=== PATIENT | male | born 1980 | race Caucasian/White ===

== ENCOUNTER 2018-01-16 07:44 | Emergency (ER) | payer OTHER ==
[2018-01-16] MEDS ORDERED: SODIUM CHLORIDE 0.9% 1,000 ML IV STA (08:09)
[2018-01-16] MEDS ORDERED: KETOROLAC 30 MG/ML 1 ML VIAL IVP STA (08:14)
[2018-01-16] MEDS ORDERED: ONDANSETRON 4 MG/2 ML VIAL IVP STA (08:14)
[2018-01-16 08:23] LABS: Basophils # (A) 0.1 k/uL (0-0.2); Basophils % (A) 1 %; Eosinophils # (A) 0.5 k/uL (0-0.7); Eosinophils % (A) 5 %; HGB 15.8 gm/dL (13.0-17.5); Lymphocytes # (A) 3.8 k/uL (1.0-4.8); Lymphocytes % (A) 40 %; MCH 30.3 pg (25.0-35.0); MCHC 33.5 g/dL (31.0-37.0); MCV 90.5 fL (80.0-100.0); Mean Platelet Volume 7.5; Monocytes # (A) 0.5 k/uL (0-1.0); Monocytes % (A) 5 %; Neutrophils # (A) 4.4 k/uL (1.3-7.7); Neutrophils % (A) 47 %; Platelet Count 304 k/uL (150-450); WBC 9.5 k/uL (3.8-10.6)
[2018-01-16 08:27] LABS: Appearance,Urine Cloudy (Clear); Bacteria,Urine Rare /hpf; Bilirubin,Urine Negative (Negative); Blood,Urine Moderate (Negative); Color,Urine Yellow; Glucose,Urine (UA) Negative (Negative); Ketones,Urine Negative (Negative); Leukocyte Esterase,Urine Negative (Negative); Mucus,Urine Few /hpf; Nitrite,Urine Negative (Negative); Protein,Urine Trace (Negative); RBC,Urine 61 /hpf (0-5); Specific Gravity,Urine 1.022 (1.001-1.035); WBC,Urine 6 /hpf (0-5)
[2018-01-16 08:31] LABS: ALT 36 U/L (21-72); AST 28 U/L (17-59); Albumin 4.1 g/dL (3.5-5.0); Alkaline Phosphatase 85 U/L (38-126); Amylase 87 U/L (30-110); Anion Gap 11 mmol/L; Blood Urea Nitrogen 11 mg/dL (9-20); Calcium 9.8 mg/dL (8.4-10.2); Carbon Dioxide 20 mmol/L (22-30); Chloride 113 mmol/L (98-107); Glucose 118 mg/dL (74-99); Lipase 1192 U/L (23-300); Potassium 4.3 mmol/L (3.5-5.1); Sodium 144 mmol/L (137-145); Total Bilirubin 0.3 mg/dL (0.2-1.3); Total Protein 6.8 g/dL (6.3-8.2)
--- NOTE | 2018-01-16 08:33 | ED ---
Abdominal Pain HPI - General Chief Complaint: Abdominal Pain Stated Complaint: abd pain Time Seen by Provider: 01/16/18 08:09 Source: patient, RN notes reviewed Mode of arrival: ambulatory Limitations: no limitations - History of Present Illness Initial Comments: This a 37-year-old male presents emergency Department chief complaint of right- sided abdominal pain. Patient states that he woke up with the pain and states that nothing seems to make it feel better or worse. Patient states he feels nauseated no diarrhea no constipation. He states hard to urinate states he feels that he has to go. Patient had no fever no chills denies any chest pain or shortness of breath. He's had no prior abdominal surgeries or history kidney stones. - Related Data Home Medications Medication Instructions Recorded Confirmed No Known Home Medications 01/16/18 01/16/18 Allergies Allergy/AdvReac Type Severity Reaction Status Date / Time No Known Allergies Allergy Verified 01/16/18 07:48 Review of Systems ROS Statement: Those systems with pertinent positive or pertinent negative responses have been documented in the HPI. ROS Other: All systems not noted in ROS Statement are negative. Past Medical History Past Medical History: No Reported History History of Any Multi-Drug Resistant Organisms: None Reported Past Surgical History: No Surgical Hx Reported Past Psychological History: No Psychological Hx Reported Smoking Status: Current every day smoker Past Alcohol Use History: None Reported Past Drug Use History: Marijuana General Exam Limitations: no limitations General appearance: alert, in no apparent distress Head exam: Present: atraumatic, normocephalic, normal inspection Eye exam: Present: normal appearance, PERRL, EOMI. Absent: scleral icterus, conjunctival injection, periorbital swelling ENT exam: Present: normal exam, normal oropharynx, mucous membranes moist Neck exam: Present: normal inspection. Absent: tenderness, meningismus, lymphadenopathy Respiratory exam: Present: normal lung sounds bilaterally. Absent: respiratory distress, wheezes, rales, rhonchi, stridor Cardiovascular Exam: Present: regular rate, normal rhythm, normal heart sounds. Absent: systolic murmur, diastolic murmur, rubs, gallop, clicks GI/Abdominal exam: Present: soft, tenderness (Mild midabdominal tenderness, minimal change in right lower quadrant tenderness), normal bowel sounds. Absent: distended, guarding, rebound, rigid Back exam: Present: CVA tenderness (R). Absent: CVA tenderness (L) Skin exam: Present: warm, dry, intact, normal color. Absent: rash Course Vital Signs 01/16/18 07:46 Temperature 97.5 F L Pulse Rate 58 L Respiratory 20 Rate Blood Pressure 145/80 O2 Sat by Pulse 100 Oximetry Medical Decision Making - Medical Decision Making 37-year-old male presents emergency from for right-sided abdominal pain. Patient had clinical symptoms of a kidney stone. He did have hematuria noted on the urine bili also had an elevated lipase. CT was obtained with contrast secondary to elevated lipase. Patient had no acute findings on CT. Patient clinically feels better at this time he has no pain and was only given Toradol. Patient most likely passed stone or it was just not seen on CT secondary to contrast. Patient was plan to be admitted to emergency from for further evaluation of the elevated lipase as he states he has not drank in over 1 year. Patient states that he has no pain and does not want to be admitted at this time we did discuss return parameters. - Lab Data Result diagrams: 01/16/18 08:00 01/16/18 08:00 Lab Results 01/16/18 01/16/18 01/16/18 Range/Units 08:00 08:00 08:00 WBC 9.5 (3.8-10.6) k/uL RBC 5.20 (4.30-5.90) m/uL Hgb 15.8 (13.0-17.5) gm/dL Hct 47.0 (39.0-53.0) % MCV 90.5 (80.0-100.0) fL MCH 30.3 (25.0-35.0) pg MCHC 33.5 (31.0-37.0) g/dL RDW 13.0 (11.5-15.5) % Plt Count 304 (150-450) k/uL Neutrophils % 47 % Lymphocytes % 40 % Monocytes % 5 % Eosinophils % 5 % Basophils % 1 % Neutrophils # 4.4 (1.3-7.7) k/uL Lymphocytes # 3.8 (1.0-4.8) k/uL Monocytes # 0.5 (0-1.0) k/uL Eosinophils # 0.5 (0-0.7) k/uL Basophils # 0.1 (0-0.2) k/uL Sodium 144 (137-145) mmol/L Potassium 4.3 (3.5-5.1) mmol/L Chloride 113 H (98-107) mmol/L Carbon Dioxide 20 L (22-30) mmol/L Anion Gap 11 mmol/L BUN 11 (9-20) mg/dL Creatinine 1.03 (0.66-1.25) mg/dL Est GFR (CKD-EPI)AfAm >90 (>60 ml/min/1.73 sqM) Est GFR (CKD-EPI)NonAf >90 (>60 ml/min/1.73 sqM) Glucose 118 H (74-99) mg/dL Calcium 9.8 (8.4-10.2) mg/dL Total Bilirubin 0.3 (0.2-1.3) mg/dL AST 28 (17-59) U/L ALT 36 (21-72) U/L Alkaline Phosphatase 85 (38-126) U/L Total Protein 6.8 (6.3-8.2) g/dL Albumin 4.1 (3.5-5.0) g/dL Amylase 87 (30-110) U/L Lipase 1192 H (23-300) U/L Urine Color Yellow Urine Appearance Cloudy (Clear) Urine pH 5.0 (5.0-8.0) Ur Specific [place] 1.022 (1.001-1.035) Urine Protein Trace H (Negative) Urine Glucose (UA) Negative (Negative) Urine Ketones Negative (Negative) Urine Blood Moderate H (Negative) Urine Nitrite Negative (Negative) Urine Bilirubin Negative (Negative) Urine Urobilinogen 2.0 (<2.0) mg/dL Ur Leukocyte Esterase Negative (Negative) Urine RBC 61 H (0-5) /hpf Urine WBC 6 H (0-5) /hpf Urine Bacteria Rare H (None) /hpf Urine Mucus Few H (None) /hpf Disposition Clinical Impression: Acute pancreatitis, Hematuria, Flank pain Disposition: HOME SELF-CARE Condition: Stable Instructions: Pancreatitis (ED) Additional Instructions: Please return to the Emergency Department if symptoms worsen or any other concerns. Is patient prescribed a controlled substance at d/c from ED?: No Referrals: None,Stated [Primary Care Provider] - 1-2 days
--- NOTE | 2018-01-16 09:22 | CT ---
EXAMINATION TYPE: CT abdomen pelvis w con DATE OF EXAM: 01/16/2018 COMPARISON: None HISTORY: right quadrant pain CT DLP: 1423.70 mGycm, Automated Exposure Control for Dose Reduction was Utilized. CONTRAST: CT scan of the abdomen and pelvis is performed without oral and with IV Contrast, patient injected wi th 100 mL of Isovue 300. FINDINGS: LUNG BASES: Dependent atelectasis in both bases is present. LIVER/GB: No CT dense intraluminal gallstones or surrounding inflammatory change is identified. PANCREAS: No significant abnormality is seen. SPLEEN: No significant abnormality is seen. ADRENALS: No significant abnormality is seen. KIDNEYS: No significant abnormality is seen. BOWEL: Evaluation bowel is slightly suboptimal study due to lack of enteric contrast. There is mild w all thickening involving the left and sigmoid colon through rectum. Finding could be product of poor distention but a mild diffuse colitis cannot be excluded. No suspicious small or large bowel dilatati on is identified. PROSTATE/SEMINAL VESICLES: No gross abnormality seen. LYMPH NODES: No greater than 1cm abdominal or pelvic lymph nodes are appreciated. OSSEOUS STRUCTURES: Partially sacralized right L5 segment. OTHER: Tiny fat-containing umbilical hernia. IMPRESSION: No significant acute finding is seen to account for patient's clinical symptoms of right upper quadrant pain. Cannot exclude a mild distal colitis, correlate clinically.
[2018-01-16] MEDS ORDERED: ACET/COD 300 MG/30 MG STARTER PACK 6 TAB BTL PO STA (10:57)
[2018-01-16 11:26] VITALS: BP 113/51; PULSE 62; RESP 18; TEMP 97.2
== END 2018-01-16 11:20 | disposition home or self-care (01) ==
LOC: EC 07:44
DX: K85.90 Acute pancreatitis without necrosis or infection, unspecified (principal); R31.9 Hematuria, unspecified; F17.200 Nicotine dependence, unspecified, uncomplicated
CPT/HCPCS: 36415; 80053; 82150; 83690; 85025; 81001; 74177; 99284; 96374; 96375; 96361; J2405; J1885; Q9967

== ENCOUNTER 2018-01-17 06:33 | Inpatient (IN) | payer OTHER ==
[2018-01-17 07:16] LABS: Basophils # (A) 0.1 k/uL (0-0.2); Basophils % (A) 1 %; Eosinophils # (A) 0.5 k/uL (0-0.7); Eosinophils % (A) 4 %; HGB 14.6 gm/dL (13.0-17.5); Lymphocytes # (A) 4.5 k/uL (1.0-4.8); Lymphocytes % (A) 44 %; MCH 30.5 pg (25.0-35.0); MCHC 33.9 g/dL (31.0-37.0); MCV 89.9 fL (80.0-100.0); Mean Platelet Volume 7.1; Monocytes # (A) 0.6 k/uL (0-1.0); Monocytes % (A) 6 %; Neutrophils # (A) 4.4 k/uL (1.3-7.7); Neutrophils % (A) 43 %; Platelet Count 286 k/uL (150-450); RBC 4.78 m/uL (4.30-5.90); WBC 10.3 k/uL (3.8-10.6)
[2018-01-17 07:24] LABS: ALT 36 U/L (21-72); AST 27 U/L (17-59); Albumin 3.7 g/dL (3.5-5.0); Alkaline Phosphatase 76 U/L (38-126); Amylase 58 U/L (30-110); Anion Gap 8 mmol/L; Blood Urea Nitrogen 11 mg/dL (9-20); Calcium 9.5 mg/dL (8.4-10.2); Carbon Dioxide 21 mmol/L (22-30); Chloride 111 mmol/L (98-107); Glucose 102 mg/dL (74-99); Lipase 435 U/L (23-300); Sodium 140 mmol/L (137-145); Total Bilirubin 0.3 mg/dL (0.2-1.3); Total Protein 6.3 g/dL (6.3-8.2)
[2018-01-17] MEDS ORDERED: HYDROmorphone 1 MG/ML 1 ML SYRINGE IVP STA ×3 (07:33→09:41)
[2018-01-17] MEDS ORDERED: SODIUM CHLORIDE 0.9% 1,000 ML IV STA (07:33)
[2018-01-17] MEDS ORDERED: ONDANSETRON 4 MG/2 ML VIAL IVP STA ×2 (07:33→07:37)
--- NOTE | 2018-01-17 07:38 | XR ---
EXAMINATION TYPE: XR KUB , 3 VIEWS DATE OF EXAM ORDERED: 01/17/2018. HISTORY: Pain. COMPARISON: Previous study dated 05/07/[address] scan of the abdomen and pelvis dated 03/2018. FINDINGS: The lung bases are clear. Within the abdomen, the abdominal gas pattern is within normal limits. There is no evidence of obstru ction or free air. No unusual calcifications are seen. The right femoral head is nonspherical. IMPRESSION: 1. NO ACUTE ABDOMINAL ABNORMALITY. 2. PLEASE CORRELATE CLINICALLY FOR RIGHT-SIDED FEMOROACETABULAR IMPINGEMENT SYNDROME.
--- NOTE | 2018-01-17 07:42 | ED ---
General Adult HPI - General Chief complaint: Abdominal Pain Stated complaint: Abdominal Pain Time Seen by Provider: 01/17/18 07:00 Source: patient, RN notes reviewed Mode of arrival: ambulatory Limitations: no limitations - History of Present Illness Initial comments: This is a 37-year-old male who presents emergency Department with right upper and epigastric abdominal pain as well as right flank pain. Patient states the pain started yesterday morning 7:00. Patient states he was in the emergency department yesterday had a CAT scan and was discharged home. Patient states they wanted to keep him but he refused to stay. Patient states the pain is since gotten worse so decided come back to the emergency department. Patient states he's had nausea and has been vomiting ever since. Patient denies any diarrhea. Patient denies any fever or chills. Patient denies any chest pain difficulty breathing or shortness of breath. Patient states she's been unable to keep any fluids down or food down. - Related Data Home Medications Medication Instructions Recorded Confirmed No Known Home Medications 01/16/18 01/16/18 Allergies Allergy/AdvReac Type Severity Reaction Status Date / Time No Known Allergies Allergy Verified 01/17/18 06:42 Review of Systems ROS Statement: Those systems with pertinent positive or pertinent negative responses have been documented in the HPI. ROS Other: All systems not noted in ROS Statement are negative. Past Medical History Past Medical History: No Reported History Additional Past Medical History / Comment(s): pancreatitis. History of Any Multi-Drug Resistant Organisms: None Reported Past Surgical History: No Surgical Hx Reported Past Psychological History: No Psychological Hx Reported Smoking Status: Current every day smoker Past Alcohol Use History: None Reported Past Drug Use History: Marijuana General Exam - General Exam Comments Initial Comments: GENERAL: Patient is well-developed and well-nourished. Patient is nontoxic and well- hydrated and is in moderate distress. ENT: Neck is soft and supple. No significant lymphadenopathy is noted. Oropharynx is clear. Moist mucous membranes. Neck has full range of motion without eliciting any pain. EYES: The sclera were anicteric and conjunctiva were pink and moist. Extraocular movements were intact and pupils were equal round and reactive to light. Eyelids were unremarkable. PULMONARY: Unlabored respirations. Good breath sounds bilaterally. No audible rales rhonchi or wheezing was noted. CARDIOVASCULAR: There is a regular rate and rhythm without any murmurs gallops or rubs. ABDOMEN: Patient has right-sided abdominal pain in the right flank and right upper quadrant and epigastric region. SKIN: Skin is clear with no lesions or rashes and otherwise unremarkable. NEUROLOGIC: Patient is alert and oriented x3. Cranial nerves II through XII are grossly intact. Motor and sensory are also intact. Normal speech, volume and content. Symmetrical smile. MUSCULOSKELETAL: Normal extremities with adequate strength and full range of motion. LYMPHATICS: No significant lymphadenopathy is noted PSYCHIATRIC: Normal psychiatric evaluation. Normal interpersonal interactions appears functionally intact in deals appropriately with others. No signs of depression. No signs of anxiety. No delusions. No hallucinations. Limitations: no limitations Course Vital Signs 01/17/18 01/17/18 06:37 09:43 Temperature 97.5 F L 97 F L Pulse Rate 54 L 60 Respiratory 24 18 Rate Blood Pressure 160/101 154/83 O2 Sat by Pulse 100 97 Oximetry Medical Decision Making - Medical Decision Making I evaluated the computed tomography scan from yesterday I thought there was a stone at the ureterovesicular junction and I spoke with the radiologist Dr. Alejandro today and he agreed with me. Patient was uncomfortable going home because he went home yesterday and continued to have significant pain so I admitted the patient with Dr. Vasquez and wrote admitting orders. - Lab Data Result diagrams: 01/17/18 06:58 01/17/18 06:58 Lab Results 01/17/18 01/17/18 01/17/18 Range/Units 06:58 06:58 07:52 WBC 10.3 (3.8-10.6) k/uL RBC 4.78 (4.30-5.90) m/uL Hgb 14.6 (13.0-17.5) gm/dL Hct 43.0 (39.0-53.0) % MCV 89.9 (80.0-100.0) fL MCH 30.5 (25.0-35.0) pg MCHC 33.9 (31.0-37.0) g/dL RDW 13.0 (11.5-15.5) % Plt Count 286 (150-450) k/uL Neutrophils % 43 % Lymphocytes % 44 % Monocytes % 6 % Eosinophils % 4 % Basophils % 1 % Neutrophils # 4.4 (1.3-7.7) k/uL Lymphocytes # 4.5 (1.0-4.8) k/uL Monocytes # 0.6 (0-1.0) k/uL Eosinophils # 0.5 (0-0.7) k/uL Basophils # 0.1 (0-0.2) k/uL Sodium 140 (137-145) mmol/L Potassium 4.0 (3.5-5.1) mmol/L Chloride 111 H (98-107) mmol/L Carbon Dioxide 21 L (22-30) mmol/L Anion Gap 8 mmol/L BUN 11 (9-20) mg/dL Creatinine 1.03 (0.66-1.25) mg/dL Est GFR (CKD-EPI)AfAm >90 (>60 ml/min/1.73 sqM) Est GFR (CKD-EPI)NonAf >90 (>60 ml/min/1.73 sqM) Glucose 102 H (74-99) mg/dL Plasma Lactic Acid Tor 2.0 (0.7-2.0) mmol/L Calcium 9.5 (8.4-10.2) mg/dL Total Bilirubin 0.3 (0.2-1.3) mg/dL AST 27 (17-59) U/L ALT 36 (21-72) U/L Alkaline Phosphatase 76 (38-126) U/L Total Protein 6.3 (6.3-8.2) g/dL Albumin 3.7 (3.5-5.0) g/dL Amylase 58 (30-110) U/L Lipase 435 H (23-300) U/L Disposition Clinical Impression: Kidney stone Disposition: ADMITTED IP TO THIS [facility] Referrals: None,Stated [Primary Care Provider] - 1-2 days Time of Disposition: 10:15
--- NOTE | 2018-01-17 08:54 | US ---
EXAMINATION TYPE: US renals and bladder DATE OF EXAM: 01/17/2018 COMPARISON: NONE CLINICAL HISTORY: Pain. EXAM MEASUREMENTS: Right Kidney: 11.9 x 5.2 x 5.9 cm Left Kidney: 11.2 x 5.5 x 5.5 cm Limited due to patient tolerance. Right Kidney: Questionable dilated Right renal pelvis Left Kidney: Appears wnl Bladder: Slightly decompressed Bilateral Jets seen: Yes IMPRESSION: NORMAL RENAL ULTRASOUND.
[2018-01-17] MEDS ORDERED: KETOROLAC 60 MG/2 ML VIAL IVP STA (09:58)
[2018-01-17] MEDS ORDERED: TAMSULOSIN 0.4 MG CAP.ER.24H PO STA (10:16)
[2018-01-17] MEDS ORDERED: SODIUM CHLORIDE 0.9% 1,000 ML IV ONE (10:16)
[2018-01-17] MEDS ORDERED: HYDROmorphone 1 MG/ML 1 ML SYRINGE IVP PRN (10:17)
[2018-01-17 12:06] VITALS: BMI 35.3
[2018-01-17] MEDS: SODIUM CHLORIDE 0.9% 1,000 ML IV SCH (12:06)
[2018-01-17] MEDS: KETOROLAC 30 MG/ML 1 ML VIAL IVP SCH ×2 (15:09→21:15)
[2018-01-17] MEDS: IPRATROPIUM-ALBUTEROL 3 ML NEB INHALATION PRN (15:34)
--- NOTE | 2018-01-17 16:12 | P.HPIM ---
History of Present Illness 37-year-old pleasant gentleman came in with right lower quadrant crampy abdominal pain and sharp abdominal pain squeezing in nature. Patient was seen in ER yesterday CAT scan of the abdomen was obtained which was read as within normal limits subsequently patient went home but refused admission apparently came back again with the same pain. Patient the symptoms improved with Toradol. Patient was started on IV fluids. Patient had an ultrasound of the kidney which did not show any nephrolithiasis. I reviewed the the abdominal CAT scan he appears to have right sided nephrolithiasis unsure of visits and obstructive. ER physician believed the same thing and discussed the CAT scan findings with the on-call radiologist who agreed with his opinion. If patient' s symptoms doesn't imply consult urology a or rales will continue with IV fluids and expectations that he's been pass a stone. Patient has nausea associated with the pain Review of Systems REVIEW OF SYSTEMS: CONSTITUTIONAL: No fever, no malaise, no fatigue. HEENT: No recent visual problems or hearing problems. Denied any sore throat. CARDIOVASCULAR: No chest pain, orthopnea, PND, no palpitations, no syncope. PULMONARY: No shortness of breath, no cough, no hemoptysis. GASTROINTESTINAL: As mentioned in HPI NEUROLOGICAL: No headaches, no weakness, no numbness. HEMATOLOGICAL: Denies any bleeding or petechiae. GENITOURINARY: Denies any burning micturition, frequency, or urgency. MUSCULOSKELETAL/RHEUMATOLOGICAL: Denies any joint pain, swelling, or any muscle pain. ENDOCRINE: Denies any polyuria or polydipsia. The rest of the 14-point review of systems is negative. Past Medical History Past Medical History: No Reported History Additional Past Medical History / Comment(s): pancreatitis. History of Any Multi-Drug Resistant Organisms: None Reported Past Surgical History: No Surgical Hx Reported Past Psychological History: Bipolar Smoking Status: Current every day smoker Past Alcohol Use History: None Reported Additional Past Alcohol Use History / Comment(s): PT STATE HE SMOKES 1/2 A PACK A DAY Past Drug Use History: Marijuana Medications and Allergies Home Medications Medication Instructions Recorded Confirmed Type Acetaminophen-Codeine 300-30mg 1 tab PO Q6H PRN 01/17/18 01/17/18 History [Tylenol w/codeine #3] Allergies Allergy/AdvReac Type Severity Reaction Status Date / Time No Known Allergies Allergy Verified 10/13/18 10:29 Physical Exam Vitals: Vital Signs Temp Pulse Pulse Resp BP BP Pulse Ox 01/17/18 16:00 98.5 F 68 18 123/67 96 01/17/18 15:44 65 16 01/17/18 15:34 65 01/17/18 12:00 57 L 18 01/17/18 11:23 98.0 F 57 L 18 124/76 96 01/17/18 10:57 98.1 F 67 18 104/55 96 01/17/18 09:43 97 F L 60 18 154/83 97 01/17/18 06:37 97.5 F L 54 L 24 160/101 100 Intake and Output 01/17/18 01/17/18 01/17/18 06:59 14:59 22:59 Other: Voiding Method Toilet Urinal Weight 108.862 kg 108.6 kg PHYSICAL EXAMINATION: GENERAL: The patient is alert and oriented x3, not in any acute distress. Well developed, well nourished. HEENT: Pupils are round and equally reacting to light. EOMI. No scleral icterus. No conjunctival pallor. Normocephalic, atraumatic. No pharyngeal erythema. No thyromegaly. CARDIOVASCULAR: S1 and S2 present. No murmurs, rubs, or gallops. PULMONARY: Fairly good air entry minimal expiratory wheezing was appreciated ABDOMEN: Soft, nontender, nondistended, normoactive bowel sounds. No palpable organomegaly. MUSCULOSKELETAL: No joint swelling or deformity. EXTREMITIES: No cyanosis, clubbing, or pedal edema. NEUROLOGICAL: Gross neurological examination did not reveal any focal deficits. SKIN: No rashes. Results CBC & Chem 7: 01/17/18 06:58 01/17/18 06:58 Labs: Abnormal Lab Results - Last 24 Hours (Table) 01/17/18 Range/Units 06:58 Chloride 111 H (98-107) mmol/L Carbon Dioxide 21 L (22-30) mmol/L Glucose 102 H (74-99) mg/dL Lipase 435 H (23-300) U/L Thrombosis Risk Factor Assmnt - Choose All That Apply Any of the Below Risk Factors Present?: No Other Risk Factors: No Thrombosis Risk Factor Assessment Level: Very Low Risk Assessment and Plan Plan: Right lower quadrant abdominal pain: Patient CAT scan did not show any appendicitis appears to have nephrolithiasis continue with IV fluids symptomatic management symptoms doesn't improve urology consultation -Patient is a smoker does have some bronchospasm wall came inhalational treatments and recheck him. Patient doesn't have any symptoms of cough or bronchitis
[2018-01-17] MEDS: MELATONIN 5 MG TABLET PO SCH (21:55)
[2018-01-18] MEDS: KETOROLAC 30 MG/ML 1 ML VIAL IVP SCH ×5 (05:25→23:29)
[2018-01-18] MEDS ORDERED: HYDROmorphone 1 MG/ML 1 ML SYRINGE IVP STA (05:40)
[2018-01-18] MEDS: ONDANSETRON 4 MG/2 ML VIAL IVP PRN ×3 (08:05→21:10)
[2018-01-18] MEDS ORDERED: MORPHINE SULFATE 4 MG/ML SYRINGE IVP PRN (12:18)
[2018-01-18] MEDS: IOPAMIDOL-300 CONTRAST 30 ML VIAL (ORAL USE) PO PRN ×2 (13:44→14:41)
--- NOTE | 2018-01-18 14:09 | US ---
EXAMINATION TYPE: US gallbladder DATE OF EXAM: 01/18/2018 COMPARISON: NONE CLINICAL HISTORY: abd pain, midline to RUQ . EXAM MEASUREMENTS: Liver Length: 17.8 cm Gallbladder Wall: 0.9 cm CBD: 0.4 cm Right Kidney: 12.0 x 5.1 x 5.9 cm Extensive overlying bowel gas. Technically difficult, patient in a lot of pain and had trouble with a ny pressure. Pancreas: Obscured by bowel gas Liver: upper limits in size, increased attenuation Gallbladder: ?stone and some sludge, thick edematous wall Evidence for sonographic Palomares's sign: Yes CBD: wnl Right Kidney: No hydronephrosis or masses seen The gallbladder wall is thickened measuring 4 mm. There is some sludge within the gallbladder. There is a positive sonographic Palomares's sign. The distal common hepatic duct measures 4 mm. The right kidney is unremarkable. The pancreas was not visualized. The liver is upper limits of normal in size at 17.8 cm. It is somewhat attenuating and may be fatty i nfiltrated. IMPRESSION: THICKENED NONTENDER GALLBLADDER WITH SLUDGE WITHIN IT. I SUSPECT ACUTE CHOLECYSTITIS.
[2018-01-18] MEDS: HYDROmorphone 1 MG/ML 1 ML SYRINGE IVP PRN ×2 (14:32→21:11)
--- NOTE | 2018-01-18 15:26 | P.PN ---
Subjective 37-year-old admitted with suspicion of nephrolithiasis. Although he continues to have severe pain there is no purulent evidence of nephrolithiasis as per the CAT scan and renal ultrasound. I'm chaining surgical consultation and urology consultation gallbladder ultrasound was obtained which is showing thickened gallbladder and gallbladder surgery. This complaining of severe pain along with nausea patient was a started on Dilaudid. Patient was started on Protonix Objective - Vital Signs Vital signs: Vital Signs Temp 98.2 F 01/18/18 08:00 Pulse 69 01/18/18 11:52 Resp 18 01/18/18 11:52 BP 145/84 01/18/18 08:00 Pulse Ox 97 01/18/18 08:00 Intake & Output 01/17/18 01/18/18 01/18/18 18:59 06:59 18:59 Weight 108.6 kg 108.6 kg Other: Voiding Method Toilet Toilet Toilet Urinal Urinal Urinal # Voids 3 1 3 - Exam PHYSICAL EXAMINATION: GENERAL: The patient is alert and oriented x3, not in any acute distress. Well developed, well nourished. HEENT: Pupils are round and equally reacting to light. EOMI. No scleral icterus. No conjunctival pallor. Normocephalic, atraumatic. No pharyngeal erythema. No thyromegaly. CARDIOVASCULAR: S1 and S2 present. No murmurs, rubs, or gallops. PULMONARY: Chest is clear to auscultation, no wheezing or crackles. ABDOMEN: Patient has a right lower quadrant abdominal tenderness no significant right upper quadrant tenderness MUSCULOSKELETAL: No joint swelling or deformity. EXTREMITIES: No cyanosis, clubbing, or pedal edema. NEUROLOGICAL: Gross neurological examination did not reveal any focal deficits. SKIN: No rashes. - Labs CBC & Chem 7: 01/17/18 06:58 01/17/18 06:58 Assessment and Plan Plan: Right lower quadrant abdominal pain: Patient CAT scan did not show any appendicitis Consulted surgery and they recommended ultrasound of the right upper quadrant which did show thickening of the gallbladder. Patient was believed to have right-sided nephrolithiasis was on IV fluids without any significant improvement in pain area patient doesn't have any fever chills. Labs for today will be obtained if recommended by surgery patient was started on antibiotics -Patient is a smoker does have some bronchospasm possibly of early COPD patient had significant improvement in wheezing with the breathing treatments
[2018-01-18] MEDS: PANTOPRAZOLE 40 MG/10 ML VIAL IVP SCH (15:41)
--- NOTE | 2018-01-18 15:48 | CT ---
EXAMINATION TYPE: CT abdomen pelvis w con DATE OF EXAM: 01/18/2018 COMPARISON: 01/16/2018 HISTORY: Right sided pain with nausea and vomiting CT DLP: 1320.4 mGycm Automated exposure control for dose reduction was used. TECHNIQUE: Helical acquisition of images was performed from the lung bases through the pelvis. CONTRAST: Performed without Oral Contrast and with IV Contrast, patient injected with 100 mL of Isovue 300. FINDINGS: Lung bases are clear. There is no pleural effusion. There is no pericardial effusion. Heart size is n ormal. Liver and spleen appear normal. Bile ducts are not dilated. Pancreas appears normal. Gallbladder appe ars normal. There is right-sided hydronephrosis and hydroureter. There is perinephric edema on the right side. Th ere is 2 mm calculus at the right ureterovesical junction. Bladder distends smoothly. Left kidney sadaf ws normal contrast opacification and no evidence of obstruction. There is no retroperitoneal adenopathy. There is no ascites. There is no mesenteric adenopathy. Appen nancy appears normal. I see no intestinal wall thickening. There are no dilated loops. The bony structu res are intact. Bony pelvis is intact. There is no inguinal hernia. There is small hiatal hernia. IMPRESSION: TINY CALCULUS OBSTRUCTING THE RIGHT UPPER COLLECTING SYSTEM AT THE URETEROVESICAL JUNCTION. OBSTRUCTI ON IS NEW COMPARED TO LAST EXAM.
[2018-01-18 16:34] LABS: HCT 40.1 % (39.0-53.0); HGB 13.8 gm/dL (13.0-17.5); MCH 31.1 pg (25.0-35.0); MCHC 34.5 g/dL (31.0-37.0); MCV 90.2 fL (80.0-100.0); Mean Platelet Volume 7.3; Platelet Count 233 k/uL (150-450); RBC 4.44 m/uL (4.30-5.90); RDW 12.9 % (11.5-15.5)
[2018-01-18 16:46] LABS: Albumin 3.7 g/dL (3.5-5.0); Calcium 9.6 mg/dL (8.4-10.2); Potassium 4.4 mmol/L (3.5-5.1); Total Bilirubin 0.6 mg/dL (0.2-1.3); Total Protein 6.2 g/dL (6.3-8.2)
[2018-01-18] MEDS: AMPICILLIN-SULBACTAM 3 GM in SODIUM CHLORIDE 0.9% 100 ML IVPB SCH ×2 (18:26→23:29)
--- NOTE | 2018-01-18 18:36 | P.GSCN ---
History of Present Illness Consult date: 01/18/18 Reason for Consult: Right ureteral calculus Requesting physician: Brandon Curtis History of present illness: The patient is a 37-year-old white male evaluated by Dr. Oswald in 2013 for dysuria. He denies any prior history of urolithiasis. However, he is now admitted with a three-day history of right lower quadrant and suprapubic abdominal pain, associated with nausea and vomiting. A computed tomography scan shows mild right hydroureteronephrosis due to a 2 mm calculus at the right ureterovesical junction. Review of Systems - Constitutional Reports chills, Denies fever - Gastrointestinal Reports abdominal pain, Reports nausea, Reports vomiting - Genitourinary Denies dysuria, Denies hematuria Past Medical History Past Medical History: No Reported History Additional Past Medical History / Comment(s): pancreatitis. History of Any Multi-Drug Resistant Organisms: None Reported Past Surgical History: No Surgical Hx Reported Past Psychological History: Bipolar Smoking Status: Current every day smoker Past Alcohol Use History: None Reported Additional Past Alcohol Use History / Comment(s): PT STATE HE SMOKES 1/2 A PACK A DAY Past Drug Use History: Marijuana Medications and Allergies Home Medications Medication Instructions Recorded Confirmed Type Acetaminophen-Codeine 300-30mg 1 tab PO Q6H PRN 01/17/18 01/17/18 History [Tylenol w/codeine #3] Allergies Allergy/AdvReac Type Severity Reaction Status Date / Time No Known Allergies Allergy Verified 01/17/18 10:29 Surgical - Exam Vital Signs Temp Pulse Resp BP Pulse Ox 97.5 F L 54 L 24 160/101 100 01/17/18 06:37 01/17/18 06:37 01/17/18 06:37 01/17/18 06:37 01/17/18 06:37 - General well developed, well nourished, no distress - Neck no masses, trachea midline - Respiratory normal respiratory effort - Abdomen Abdomen: soft, tender (Mild right lower quadrant tenderness), no guarding, no rigid, no rebound, no distended - Genitourinary normal penis with no external lesions, testicles non-tender - Psychiatric oriented to time, oriented to person, oriented to place, speech is normal, memory intact Results - Labs 01/18/18 16:04 01/18/18 16:04 Abnormal Lab Results - Last 24 Hours (Table) 01/18/18 01/18/18 Range/Units 16:04 16:04 WBC 15.0 H (3.8-10.6) k/uL Chloride 108 H (98-107) mmol/L Creatinine 1.39 H (0.66-1.25) mg/dL Total Protein 6.2 L (6.3-8.2) g/dL Diabetes panel 01/18/18 Range/Units 16:04 Sodium 139 (137-145) mmol/L Potassium 4.4 (3.5-5.1) mmol/L Chloride 108 H (98-107) mmol/L Carbon Dioxide 23 (22-30) mmol/L BUN 14 (9-20) mg/dL Creatinine 1.39 H (0.66-1.25) mg/dL Glucose 84 (74-99) mg/dL Calcium 9.6 (8.4-10.2) mg/dL AST 31 (17-59) U/L ALT 35 (21-72) U/L Alkaline Phosphatase 72 (38-126) U/L Total Protein 6.2 L (6.3-8.2) g/dL Albumin 3.7 (3.5-5.0) g/dL Calcium panel 01/18/18 Range/Units 16:04 Calcium 9.6 (8.4-10.2) mg/dL Albumin 3.7 (3.5-5.0) g/dL Pituitary panel 01/18/18 Range/Units 16:04 Sodium 139 (137-145) mmol/L Potassium 4.4 (3.5-5.1) mmol/L Chloride 108 H (98-107) mmol/L Carbon Dioxide 23 (22-30) mmol/L BUN 14 (9-20) mg/dL Creatinine 1.39 H (0.66-1.25) mg/dL Glucose 84 (74-99) mg/dL Calcium 9.6 (8.4-10.2) mg/dL Adrenal panel 01/18/18 Range/Units 16:04 Sodium 139 (137-145) mmol/L Potassium 4.4 (3.5-5.1) mmol/L Chloride 108 H (98-107) mmol/L Carbon Dioxide 23 (22-30) mmol/L BUN 14 (9-20) mg/dL Creatinine 1.39 H (0.66-1.25) mg/dL Glucose 84 (74-99) mg/dL Calcium 9.6 (8.4-10.2) mg/dL Total Bilirubin 0.6 (0.2-1.3) mg/dL AST 31 (17-59) U/L ALT 35 (21-72) U/L Alkaline Phosphatase 72 (38-126) U/L Total Protein 6.2 L (6.3-8.2) g/dL Albumin 3.7 (3.5-5.0) g/dL - Imaging CT scan - abdomen: report reviewed, image reviewed Assessment and Plan (1) Calculus of ureter Current Visit: Yes Status: Acute Code(s): N20.1 - CALCULUS OF URETER SNOMED Code(s): 00626730 Plan: In summary, the patient is a 37-year-old male with no prior history of urolithiasis. He was admitted with right renal colic due to a 2 mm calculus at the right ureterovesical junction. I explained to him that the likelihood that the calculus will pass exceeds 90%, and in view of this I have suggested conservative management in the form of tamsulosin, analgesics, and anti- emetics. He was advised to strain his urine, and he will follow-up with me in 2 -3 weeks. Ureteroscopic removal of the calculus will be considered only if he has intractable symptoms. Time with Patient: Greater than 30
[2018-01-18] MEDS: MELATONIN 5 MG TABLET PO SCH (21:11)
[2018-01-18] MEDS: SODIUM CHLORIDE 0.9% 1,000 ML IV SCH ×3 (21:16→21:17)
[2018-01-19] MEDS: SODIUM CHLORIDE 0.9% 1,000 ML IV SCH ×2 (03:53→12:56)
[2018-01-19] MEDS: AMPICILLIN-SULBACTAM 3 GM in SODIUM CHLORIDE 0.9% 100 ML IVPB SCH ×4 (05:15→23:31)
[2018-01-19] MEDS: KETOROLAC 30 MG/ML 1 ML VIAL IVP SCH ×2 (05:15→12:57)
[2018-01-19] MEDS: TAMSULOSIN 0.4 MG CAP.ER.24H PO SCH (09:13)
[2018-01-19] MEDS: PANTOPRAZOLE 40 MG/10 ML VIAL IVP SCH (09:13)
[2018-01-19] MEDS: HYDROmorphone 1 MG/ML 1 ML SYRINGE IVP PRN ×3 (09:14→20:29)
--- NOTE | 2018-01-19 10:26 | P.GSCN ---
History of Present Illness Consult date: 01/19/18 Reason for Consult: Abdominal pain History of present illness: This a 37-year-old male who had complaints of right-sided abdominal pain. Patient underwent CAT scan and ultrasound of the abdomen. Patient's found have a right ureteral calculi. He also found have evidence of cholelithiasis and thickened gallbladder wall consistent with cholecystitis. Patient states he had some mild right upper quadrant pain. He states his pain is better than yesterday. Past Medical History Past Medical History: No Reported History Additional Past Medical History / Comment(s): pancreatitis. History of Any Multi-Drug Resistant Organisms: None Reported Past Surgical History: No Surgical Hx Reported Past Psychological History: Bipolar Smoking Status: Current every day smoker Past Alcohol Use History: None Reported Additional Past Alcohol Use History / Comment(s): PT STATE HE SMOKES 1/2 A PACK A DAY Past Drug Use History: Marijuana Medications and Allergies Home Medications Medication Instructions Recorded Confirmed Type Acetaminophen-Codeine 300-30mg 1 tab PO Q6H PRN 01/17/18 01/17/18 History [Tylenol w/codeine #3] Hydrocodone/Acetaminophen [[place] 1 - 2 each PO Q4HR PRN #12 tab 01/18/18 Rx 5-325] Ondansetron [Zofran] 4 mg PO Q8HR PRN #10 tab 01/18/18 Rx Tamsulosin [Flomax] 0.4 mg PO DAILY #30 cap 01/18/18 Rx Allergies Allergy/AdvReac Type Severity Reaction Status Date / Time No Known Allergies Allergy Verified 01/17/18 10:29 Surgical - Exam Vital Signs Temp Pulse Resp BP Pulse Ox 97.5 F L 54 L 24 160/101 100 01/17/18 06:37 01/17/18 06:37 01/17/18 06:37 01/17/18 06:37 01/17/18 06:37 - General well developed, no distress - Eyes PERRL - ENT normal pinna - Neck no masses - Respiratory normal expansion - Cardiovascular Rhythm: regular - Abdomen Mild right upper quadrant pain, there is no rebound or guarding. Abdomen: soft Results - Labs 01/18/18 16:04 01/18/18 16:04 Abnormal Lab Results - Last 24 Hours (Table) 01/18/18 01/18/18 Range/Units 16:04 16:04 WBC 15.0 H (3.8-10.6) k/uL Chloride 108 H (98-107) mmol/L Creatinine 1.39 H (0.66-1.25) mg/dL Total Protein 6.2 L (6.3-8.2) g/dL Diabetes panel 01/18/18 Range/Units 16:04 Sodium 139 (137-145) mmol/L Potassium 4.4 (3.5-5.1) mmol/L Chloride 108 H (98-107) mmol/L Carbon Dioxide 23 (22-30) mmol/L BUN 14 (9-20) mg/dL Creatinine 1.39 H (0.66-1.25) mg/dL Glucose 84 (74-99) mg/dL Calcium 9.6 (8.4-10.2) mg/dL AST 31 (17-59) U/L ALT 35 (21-72) U/L Alkaline Phosphatase 72 (38-126) U/L Total Protein 6.2 L (6.3-8.2) g/dL Albumin 3.7 (3.5-5.0) g/dL Calcium panel 01/18/18 Range/Units 16:04 Calcium 9.6 (8.4-10.2) mg/dL Albumin 3.7 (3.5-5.0) g/dL Pituitary panel 01/18/18 Range/Units 16:04 Sodium 139 (137-145) mmol/L Potassium 4.4 (3.5-5.1) mmol/L Chloride 108 H (98-107) mmol/L Carbon Dioxide 23 (22-30) mmol/L BUN 14 (9-20) mg/dL Creatinine 1.39 H (0.66-1.25) mg/dL Glucose 84 (74-99) mg/dL Calcium 9.6 (8.4-10.2) mg/dL Adrenal panel 01/18/18 Range/Units 16:04 Sodium 139 (137-145) mmol/L Potassium 4.4 (3.5-5.1) mmol/L Chloride 108 H (98-107) mmol/L Carbon Dioxide 23 (22-30) mmol/L BUN 14 (9-20) mg/dL Creatinine 1.39 H (0.66-1.25) mg/dL Glucose 84 (74-99) mg/dL Calcium 9.6 (8.4-10.2) mg/dL Total Bilirubin 0.6 (0.2-1.3) mg/dL AST 31 (17-59) U/L ALT 35 (21-72) U/L Alkaline Phosphatase 72 (38-126) U/L Total Protein 6.2 L (6.3-8.2) g/dL Albumin 3.7 (3.5-5.0) g/dL - Imaging US - abdomen: report reviewed (Cholelithiasis, thickened gallbladder wall) Assessment and Plan Assessment: Acute and chronic cholecystitis. Patient will undergo laparoscopic ostectomy in the a.m.
[2018-01-19 12:29] LABS: ALT 33 U/L (21-72); AST 26 U/L (17-59); Albumin 3.2 g/dL (3.5-5.0); Alkaline Phosphatase 63 U/L (38-126); Anion Gap 4 mmol/L; Blood Urea Nitrogen 12 mg/dL (9-20); Calcium 9.2 mg/dL (8.4-10.2); Carbon Dioxide 25 mmol/L (22-30); Chloride 111 mmol/L (98-107); Glucose 86 mg/dL (74-99); Potassium 4.1 mmol/L (3.5-5.1); Sodium 140 mmol/L (137-145); Total Bilirubin 0.6 mg/dL (0.2-1.3); Total Protein 5.7 g/dL (6.3-8.2)
[2018-01-19 12:54] LABS: HCT 36.6 % (39.0-53.0); HGB 12.7 gm/dL (13.0-17.5); MCH 30.6 pg (25.0-35.0); MCHC 34.8 g/dL (31.0-37.0); Mean Platelet Volume 7.1; Platelet Count 216 k/uL (150-450); RBC 4.16 m/uL (4.30-5.90); WBC 9.1 k/uL (3.8-10.6)
--- NOTE | 2018-01-19 15:03 | P.PN ---
Subjective 37-year-old admitted with suspicion of nephrolithiasis. Although he continues to have severe pain there is no purulent evidence of nephrolithiasis as per the CAT scan and renal ultrasound. I'm chaining surgical consultation and urology consultation gallbladder ultrasound was obtained which is showing thickened gallbladder and gallbladder surgery. This complaining of severe pain along with nausea patient was a started on Dilaudid. Patient was started on Protonix 01/19/2018 Patient had leukocytosis which improved elevated the white blood cell count which improved, acute renal failure which improved as well. Patient will undergo laparoscopic cholecystectomy for acute cholecystitis. Pain is better controlled today. Computed tomography scan of the abdomen showed small nephrolithiasis urology evaluated the patient and does have positive Palomares's sign and right upper quadrant tenderness. Patient still has significant pain. Constitutional: Denied any fatigue denied any fever. Cardio vascular: denied any chest pain, palpitations Gastrointestinal as mentioned in HPI Pulmonary: Denied any shortness of breath cough Neurologic denied any new focal deficits Objective - Vital Signs Vital signs: Vital Signs Temp 98.2 F 01/19/18 07:15 Pulse 56 L 01/19/18 07:15 Resp 17 01/19/18 07:15 BP 122/69 01/19/18 07:15 Pulse Ox 96 01/19/18 07:15 Intake & Output 01/18/18 01/19/18 01/19/18 18:59 06:59 18:59 Intake Total 700 500 Balance 700 500 Intake: IV 700 Sodium Chloride 0.9% 1, 700 000 ml @ 100 mls/hr IV . Q10H [facility] Rx#:[id number] Oral 300 Other 200 Other: Voiding Method Toilet Toilet Toilet Urinal Urinal Urinal # Voids 3 2 - Exam PHYSICAL EXAMINATION: GENERAL: The patient is alert and oriented x3, not in any acute distress. Well developed, well nourished. HEENT: Pupils are round and equally reacting to light. EOMI. No scleral icterus. No conjunctival pallor. Normocephalic, atraumatic. No pharyngeal erythema. No thyromegaly. CARDIOVASCULAR: S1 and S2 present. No murmurs, rubs, or gallops. PULMONARY: Chest is clear to auscultation, no wheezing or crackles. ABDOMEN: Patient has a right lower quadrant abdominal tenderness does have significant right upper quadrant tenderness, positive Palomares's sign MUSCULOSKELETAL: No joint swelling or deformity. EXTREMITIES: No cyanosis, clubbing, or pedal edema. NEUROLOGICAL: Gross neurological examination did not reveal any focal deficits. SKIN: No rashes. - Labs CBC & Chem 7: 01/19/18 11:56 01/19/18 11:56 Labs: Abnormal Lab Results - Last 24 Hours (Table) 01/18/18 01/18/18 01/19/18 Range/Units 16:04 16:04 11:56 WBC 15.0 H (3.8-10.6) k/uL RBC 4.16 L (4.30-5.90) m/uL Hgb 12.7 L (13.0-17.5) gm/dL Hct 36.6 L (39.0-53.0) % Chloride 108 H (98-107) mmol/L Creatinine 1.39 H (0.66-1.25) mg/dL Total Protein 6.2 L (6.3-8.2) g/dL Albumin (3.5-5.0) g/dL 01/19/18 Range/Units 11:56 WBC (3.8-10.6) k/uL RBC (4.30-5.90) m/uL Hgb (13.0-17.5) gm/dL Hct (39.0-53.0) % Chloride 111 H (98-107) mmol/L Creatinine (0.66-1.25) mg/dL Total Protein 5.7 L (6.3-8.2) g/dL Albumin 3.2 L (3.5-5.0) g/dL Assessment and Plan Plan: -Possible cholecystitis: Patient will undergo cholecystectomy tomorrow patient is on Unasyn which will be continued IV fluids. -Acute renal failure secondary to cholecystitis infection, improving now continue with IV fluids -Nephrolithiasis patient is on tamsulosin IV fluids which will be continued -Mild COPD exacerbation continue with a shuttle treatments patient will be discharged on albuterol as needed along with inhalational steroids
[2018-01-19] MEDS: ONDANSETRON 4 MG/2 ML VIAL IVP PRN (15:49)
[2018-01-19 16:00] LABS: Band Neutrophils % 3 %; Eosinophils # (M) 0.36 k/uL (0-0.7); Lymphocytes # (M) 3.37 k/uL (1.0-4.8); Monocytes # (M) 0.18 k/uL (0-1.0); Neutrophils % (M) 54 %; Nucleated Red Blood Cells 0 /100 WBC (0-0); Total Cells Counted 100; Toxic Granulation Present
[2018-01-19] MEDS: MELATONIN 5 MG TABLET PO SCH (20:29)
[2018-01-19] MEDS: KETOROLAC 30 MG/ML 1 ML VIAL IVP PRN (23:28)
[2018-01-20] MEDS: SODIUM CHLORIDE 0.9% 1,000 ML IV SCH ×3 (01:58→17:44)
[2018-01-20] MEDS: HYDROmorphone 1 MG/ML 1 ML SYRINGE IVP PRN ×3 (02:02→20:34)
[2018-01-20] MEDS: KETOROLAC 30 MG/ML 1 ML VIAL IVP PRN (06:41)
[2018-01-20] MEDS: AMPICILLIN-SULBACTAM 3 GM in SODIUM CHLORIDE 0.9% 100 ML IVPB SCH ×3 (06:41→17:44)
[2018-01-20 08:35] LABS: ALT 31 U/L (21-72); AST 26 U/L (17-59); Albumin 3.3 g/dL (3.5-5.0); Alkaline Phosphatase 66 U/L (38-126); Anion Gap 6 mmol/L; Blood Urea Nitrogen 11 mg/dL (9-20); Calcium 9.2 mg/dL (8.4-10.2); Carbon Dioxide 26 mmol/L (22-30); Chloride 109 mmol/L (98-107); Glucose 81 mg/dL (74-99); Potassium 4.1 mmol/L (3.5-5.1); Sodium 141 mmol/L (137-145); Total Bilirubin 0.8 mg/dL (0.2-1.3); Total Protein 5.9 g/dL (6.3-8.2)
[2018-01-20] MEDS ORDERED: IV FLUID CONTINUATION 1,000 ML IV ONE (12:13)
[2018-01-20] MEDS: ONDANSETRON 4 MG/2 ML VIAL IVP PRN ×2 (12:18→20:34)
[2018-01-20] MEDS ORDERED: BUPIVACAIN-EPI 0.25%-1:200,000 30 ML VIAL SQ ONE ×2 (13:14→13:36)
[2018-01-20] MEDS ORDERED: GLYCOPYRROLATE 0.2 MG/ML 2 ML VIAL ONE (13:16)
[2018-01-20] MEDS ORDERED: ROCURONIUM BROMIDE 10 MG/ML 10 ML VIAL IV ONE (13:16)
[2018-01-20] MEDS ORDERED: MORPHINE SULFATE 10 MG/ML SYRINGE ONE (13:16)
[2018-01-20] MEDS ORDERED: NEOSTIGMINE 1 MG/ML 10 ML VIAL ONE (13:16)
[2018-01-20] MEDS ORDERED: PROPOFOL 10 MG/ML 20 ML VIAL IV ONE (13:16)
[2018-01-20] MEDS ORDERED: SUCCINYLCHOLINE CHLORIDE 100 MG/5 ML SYR IV ONE (13:16)
[2018-01-20] MEDS ORDERED: KETOROLAC 30 MG/ML 1 ML VIAL ONE (13:16)
[2018-01-20] MEDS ORDERED: LIDOCAINE 1% INJ 10MG/ML (20 ML MDV) ONE (13:16)
[2018-01-20] MEDS ORDERED: MIDAZOLAM 2 MG/2 ML VIAL ONE (13:16)
[2018-01-20] MEDS ORDERED: fentaNYL (PF) 50 MCG/ML 2 ML AMP ONE (13:16)
[2018-01-20] MEDS ORDERED: HEPARIN SODIUM,PORCINE 5,000 UNIT/ML 1 ML VIAL ONE (13:16)
--- NOTE | 2018-01-20 13:53 | P.OP ---
Date of Procedure: 01/20/18 Preoperative Diagnosis: Cholecystitis Postoperative Diagnosis: Cholecystitis Procedure(s) Performed: Laparoscopic cholecystectomy Anesthesia: ANNA Surgeon: David Nixon Estimated Blood Loss (ml): 10 Pathology: other (Gallbladder) Condition: stable Disposition: PACU Description of Procedure: The patient was placed on the operating table. The patient received a general endotracheal tube anesthesia. The patients abdomen was prepped and draped in the usual sterile fashion. Through an infraumbilical stab incision, the fascia of the anterior abdominal wall was grasped with a pair of Kochers and then the Veress needle was placed in the peritoneal cavity. Position of the Veress needle was confirmed with positive drop test. The abdomen was then insufflated. After adequate insufflation, the 10 mm trocar was placed in the peritoneal cavity. Following this the laparoscope was placed in the peritoneal cavity. The patient was placed in the head-up, right side up position and then a 5 mm trocar was placed in the right lateral and right subcostal position under direct visualization. A 8 mm trocar was placed in the epigastric position. The gallbladder was grasped in the fundus and infundibulum. Traction on the gallbladder was placed in the lateral and the cephalad positions. The triangle of Calot was visualized.. The cystic duct was bluntly dissected until the union of the cystic duct and common bile duct was seen. The cystic duct was then divided and sealed with the Harmonic scissors. A PDS Endoloop was then placed throughout the cystic duct stump. The cystic artery divided and sealed with the Harmonic scissors. The gallbladder was then removed from the liver bed using Harmonic scissors. The gallbladder was then extracted through the epigastric port site. Operative field was checked for any bleeding spots and Harmonic scissors was used to coagulate the liver bed. The abdomen was irrigated. The trocars were removed. The skin was closed using interrupted 3-0 Vicryl suture. Dermabond dressing were applied. The patient tolerated the procedure well.
[2018-01-20] MEDS: HYDROmorphone 1 MG/ML 1 ML SYRINGE IVP ONE ×2 (14:25→14:33)
[2018-01-20] MEDS: HYDROmorphone 0.5 MG/0.5 ML SYRINGE IVP ONE ×2 (14:44→14:47)
[2018-01-20] MEDS: TAMSULOSIN 0.4 MG CAP.ER.24H PO SCH (16:29)
[2018-01-20] MEDS: PANTOPRAZOLE 40 MG/10 ML VIAL IVP SCH (16:37)
[2018-01-20] MEDS: IPRATROPIUM-ALBUTEROL 3 ML NEB INHALATION PRN (19:53)
[2018-01-20 21:05] VITALS: RESP 16
[2018-01-20] MEDS: MELATONIN 5 MG TABLET PO SCH (23:40)
[2018-01-21] MEDS: AMPICILLIN-SULBACTAM 3 GM in SODIUM CHLORIDE 0.9% 100 ML IVPB SCH ×3 (00:13→12:29)
[2018-01-21] MEDS: HYDROmorphone 1 MG/ML 1 ML SYRINGE IVP PRN ×2 (00:21→08:09)
[2018-01-21] MEDS: SODIUM CHLORIDE 0.9% 1,000 ML IV SCH (04:07)
[2018-01-21 05:16] VITALS: BP 134/83; PULSE 63; TEMP 98
[2018-01-21] MEDS: TAMSULOSIN 0.4 MG CAP.ER.24H PO SCH (08:09)
[2018-01-21] MEDS: ONDANSETRON 4 MG/2 ML VIAL IVP PRN (08:12)
[2018-01-21] MEDS ORDERED: PANTOPRAZOLE 40 MG TABLET PO SCH (09:00)
[2018-01-21] MEDS ORDERED: HYDROcodone/APAP 5-325MG 1 EACH TAB PO PRN (11:51)
[2018-01-21] MEDS ORDERED: DOCUSATE 100 MG CAP PO SCH (12:00)
--- NOTE | 2018-01-21 12:01 | P.PN ---
Subjective Progress Note Date: 01/21/18 37-year-old male seen this morning at bedside. Patient states he has been up ambulating in the stock passing gas no stool patient states he hasn't had a bowel movement in 5-6 days reports tolerating a diet surgical tenderness appropriate surgical dressing site dry Postop January 20 laparoscopic cholecystectomy for cholecystitis Objective - Vital Signs Vital signs: Vital Signs Temp 98 F 01/21/18 05:16 Pulse 63 01/21/18 05:16 Resp 16 01/21/18 05:16 BP 134/83 01/21/18 05:16 Pulse Ox 96 01/21/18 05:16 Intake & Output 01/20/18 01/21/18 01/21/18 18:59 06:59 18:59 Intake Total 1340 1910 Output Total 5 Balance 1335 1910 Weight 108.6 kg 108.6 kg Intake: IV 750 900 Sodium Chloride 0.9% 1, 900 000 ml @ 100 mls/hr IV . Q10H [facility] Rx#:[id number] Oral 590 1010 Output: Estimated Blood Loss 5 Other: Voiding Method Toilet Toilet Toilet # Voids 2 3 1 - Exam GENERAL APPEARANCE: 37 -year-old male resting in bed appears in no acute distress VITAL SIGNS: Reviewed HEENT: Head is normocephalic and atraumatic. Pupils are equal and reactive. The nares are patent. Oropharynx is clear without lesions. NECK: Supple without lymphadenopathy. Traches midline. HEART: S1, S2. Regular rate and rhythm. Denying chest pain LUNGS: No crackles or wheezes are heard. Adequate air movement ABDOMEN: Soft, mild surgical tenderness surgical dressing sites dry few bowel tones noted no nausea no vomiting tolerating diet not distended EXTREMITIES: Normal skin color and turgor. No cyanosis, rash, ulceration, clubbing or edema. Radial pedal pulses are 2/4 bilaterally. NEUROLOGICAL: No focal deficits. Strength and sensation are grossly intact. - Labs CBC & Chem 7: 01/19/18 11:56 01/20/18 07:47 Assessment and Plan Assessment: Impression Right side abdominal pain suspect due to cholelithiasis with gallbladder wall thickening consistent with acute on chronic cholecystitis CAT scan abdomen pelvis showed right ureteral calculi Calculus of the ureter January 20 postop laparoscopic cholecystectomy for cholecystitis Plan continue postop surgical care Pain control Increase activity Continue recommendations by urology defer to From a surgical perspective is felt to be appropriate to be discharged per to the timing of the discharge to the attending The above impression and plan of care have been discussed and directed by signing physician. Edilma Courtney nurse practitioner acting as scribe for signing physician.
--- NOTE | 2018-01-21 15:45 | P.DS ---
Providers Date of admission: 01/19/18 15:56 Expected date of discharge: 01/21/18 Attending physician: Mckenna Curtis Consults: 01/18/18 07:18 Consult Physician Routine Consulting Provider: Cy Amaral Consult Reason/Comments: kindwinsome stone Do you want consulting provider notified?: Yes 01/18/18 12:23 Consult Physician Routine Consulting Provider: David Nixon Consult Reason/Comments: right sided abdominal pain Do you want consulting provider notified?: Yes Primary care physician: Stated None Hospital Course: Final Diagnoses: -Possible cholecystitis: Status post laparoscopic cholecystectomy -Acute renal failure secondary to cholecystitis infection, improved with IV fluids -Nephrolithiasis, on Flomax -Mild COPD exacerbation Hospital course:37-year-old admitted with suspicion of nephrolithiasis. Although he continues to have severe pain there is no purulent evidence of nephrolithiasis as per the CAT scan and renal ultrasound. I'm chaining surgical consultation and urology consultation gallbladder ultrasound was obtained which is showing thickened gallbladder and gallbladder surgery. This complaining of severe pain along with nausea patient was a started on Dilaudid. Patient was started on Protonix 01/19/2018 Patient had leukocytosis which improved elevated the white blood cell count which improved, acute renal failure which improved as well. Patient will undergo laparoscopic cholecystectomy for acute cholecystitis. Pain is better controlled today. Computed tomography scan of the abdomen showed small nephrolithiasis urology evaluated the patient and does have positive Palomares's sign and right upper quadrant tenderness. Patient still has significant pain. Constitutional: Denied any fatigue denied any fever. Cardio vascular: denied any chest pain, palpitations Gastrointestinal as mentioned in HPI Pulmonary: Denied any shortness of breath cough Neurologic denied any new focal deficits Evaluated by both urology and surgery. Status post lap cholecystectomy, tolerated procedure well. Renal function improved with gentle IV fluid hydration. Significant clinical improvement. Cleared by all consults for discharge. Patient is being discharged home in a stable condition with guarded prognosis. EXAMINATION: GENERAL: The patient is alert and oriented x3, not in any acute distress. CARDIOVASCULAR: S1 and S2 present. No murmurs, rubs, or gallops. PULMONARY: Chest is clear to auscultation, no wheezing or crackles. ABDOMEN: Soft, status post surgery, positive bowel sounds NEUROLOGICAL: Gross neurological examination did not reveal any focal deficits. The impression and plan of care has been dictated as directed. : I performed a history and examination of this patient, discussed the same with the dictator. I agree with the dictator's note ,documented as a scribe. Any additional findings or plans will be noted. Time taken: 35 minutes Patient Condition at Discharge: Stable Plan - Discharge Summary Discharge Rx Participant: No New Discharge Prescriptions: New Hydrocodone/Acetaminophen [[place] 5-325] 1 - 2 each PO Q4HR PRN #12 tab PRN Reason: Pain Ondansetron [Zofran] 4 mg PO Q8HR PRN #10 tab PRN Reason: Nausea And Vomiting Tamsulosin [Flomax] 0.4 mg PO DAILY #30 cap Albuterol Inhaler [Ventolin Hfa Inhaler] 1 - 2 puff INHALATION Q6HR PRN #1 inhaler PRN Reason: Shortness Of Breath Or Wheezing Mometasone/Formoterol [[place] 200 Mcg/5 Mcg Inhaler] 2 puff INHALATION BID # 1 inhaler Docusate [Colace] 100 mg PO BID #0 cap Pantoprazole [Protonix] 40 mg PO DAILY #30 tablet.dr Donald Action Acetaminophen-Codeine 300-30mg [Tylenol w/codeine #3] 1 tab PO Q6H PRN PRN Reason: Pain Discharge Medication List Acetaminophen-Codeine 300-30mg [Tylenol w/codeine #3] 1 tab PO Q6H PRN 01/17/18 [History] Hydrocodone/Acetaminophen [[place] 5-325] 1 - 2 each PO Q4HR PRN #12 tab 01/18/18 [Rx] Ondansetron [Zofran] 4 mg PO Q8HR PRN #10 tab 01/18/18 [Rx] Tamsulosin [Flomax] 0.4 mg PO DAILY #30 cap 01/18/18 [Rx] Albuterol Inhaler [Ventolin Hfa Inhaler] 1 - 2 puff INHALATION Q6HR PRN #1 inhaler 01/19/18 [Rx] Mometasone/Formoterol [[place] 200 Mcg/5 Mcg Inhaler] 2 puff INHALATION BID #1 inhaler 01/19/18 [Rx] Docusate [Colace] 100 mg PO BID #0 cap 01/21/18 [Rx] Pantoprazole [Protonix] 40 mg PO DAILY #30 tablet. 01/21/18 [Rx] Follow up Appointment(s)/Referral(s): Cy Amaral MD [STAFF PHYSICIAN] - 2 Weeks David Nixon MD [STAFF PHYSICIAN] - 1 Week Ronan Ross NPC [REFERRING] - 1 Week Activity/Diet/Wound Care/Special Instructions: Diet as tolerated. Start with a low fat diet Activity as tolerated. Drink plenty of fluids. Strain urine. No tub bath for six weeks. Shower daily. No lifting over 10 pounds for the next 2 weeks. May use ice packs to surgical site. No driving while taking narcotic for pain. Do not remove the plastic surgical dressings until seen in the follow-up visit
== END 2018-01-21 16:01 | disposition home or self-care (01) | DRG 418 ==
LOC: EC 06:33 → 3OBS 10:22 → UNDOADMOB 10:22 → 3OBS 14:11 → 1SOBS 01-18 08:35 → 3SCARD 01-18 10:22 → 1SOBS 01-18 10:22 → OBSVTOIN 01-19 15:56 → 3NMEDONC 01-20 11:52 → 1SOBS 01-20 11:52 → 3NMEDONC 01-21 11:19
PROVIDERS: ADMIT Hospitalist; ATTEND Hospitalist
PROC: 0FT44ZZ Resection of Gallbladder, Percutaneous Endoscopic Approach (ICD-10-PCS; principal; 2018-01-20 12:35)
DX: K80.12 Calculus of gallbladder with acute and chronic cholecystitis without obstruction (principal); J44.1 Chronic obstructive pulmonary disease with (acute) exacerbation; N13.2 Hydronephrosis with renal and ureteral calculous obstruction; N17.9 Acute kidney failure, unspecified; F17.210 Nicotine dependence, cigarettes, uncomplicated
CPT/HCPCS: 36415; 74018; 74177; 76705; 76770; 80053; 82150; 83605; 83690; 85025; 85027; 88304; 94640; 96374; 96375; 96376; 99285

== ENCOUNTER 2019-10-29 12:26 | Observation (INO) | payer OTHER ==
[2019-10-29] MEDS ORDERED: ASPIRIN 81 MG PO STA (12:36)
[2019-10-29] MEDS ORDERED: NITROGLYCERIN SL TABS 0.4 MG TAB SUBLINGUAL STA ×3 (12:36)
--- NOTE | 2019-10-29 12:56 | ED ---
General Adult HPI - General Chief complaint: Chest Pain Stated complaint: chest pain Time Seen by Provider: 10/29/19 12:32 Source: patient, RN notes reviewed Mode of arrival: ambulatory Limitations: no limitations - History of Present Illness Initial comments: Patient is a pleasant 38-year-old male presenting to the emergency Department with complaints of chest discomfort. Onset of symptoms was a couple of days ago. Patient does have chronic cough from being a smoker. Patient states discomfort is sharp and steady. Discomfort significantly increased with cough or deep inspirations. Patient does feel a little short of breath. No fevers. Cough has been mild and nonproductive. However cough is somewhat increased from baseline cough. No nausea vomiting or diaphoresis. No leg pain or leg swelling. - Related Data Home Medications Medication Instructions Recorded Confirmed No Known Home Medications 10/29/19 10/29/19 Allergies Allergy/AdvReac Type Severity Reaction Status Date / Time No Known Allergies Allergy Verified 10/29/19 13:22 Review of Systems ROS Statement: Those systems with pertinent positive or pertinent negative responses have been documented in the HPI. ROS Other: All systems not noted in ROS Statement are negative. Constitutional: Denies: fever Eyes: Denies: eye pain ENT: Denies: ear pain Respiratory: Reports: as per HPI, cough Cardiovascular: Reports: as per HPI, chest pain Endocrine: Denies: fatigue Gastrointestinal: Denies: abdominal pain Genitourinary: Denies: dysuria Musculoskeletal: Denies: back pain Skin: Denies: rash Neurological: Denies: weakness Past Medical History Past Medical History: No Reported History Additional Past Medical History / Comment(s): pancreatitis. History of Any Multi-Drug Resistant Organisms: None Reported Past Surgical History: Cholecystectomy Past Psychological History: Bipolar Smoking Status: Current every day smoker Past Alcohol Use History: None Reported Past Drug Use History: Marijuana Additional History: Father and grandfather both with history of heart problems General Exam Limitations: no limitations General appearance: alert, in no apparent distress Head exam: Present: normocephalic Eye exam: Present: normal appearance Neck exam: Present: normal inspection Respiratory exam: Present: normal lung sounds bilaterally, chest wall tenderness (Mild tenderness left anterior chest wall) Cardiovascular Exam: Present: regular rate, normal rhythm Expanded Peripheral pulses: 2+: Radial (R), Radial (L), Dorsalis Pedis (R), Dorsalis Pedis (L) GI/Abdominal exam: Present: soft. Absent: tenderness Extremities exam: Present: normal inspection. Absent: pedal edema, calf tenderness Neurological exam: Present: alert Psychiatric exam: Present: normal affect, normal mood Skin exam: Present: normal color Course Vital Signs 10/29/19 12:27 Temperature 98.2 F Pulse Rate 61 Respiratory 18 Rate Blood Pressure 141/87 O2 Sat by Pulse 98 Oximetry EKG Findings - EKG Comments: EKG Findings:: Normal sinus rhythm 72. MT 144. QRS 92. QT 400. QTc 438. Normal axis. Normal QRS. No acute ST change. Medical Decision Making - Medical Decision Making Patient reevaluated and symptom-free following nitroglycerin. Patient and family updated. Case discussed with Dr. Vasquez, who will admit for hospital call. - Lab Data Result diagrams: 10/29/19 12:48 10/29/19 12:48 Lab Results 10/29/19 10/29/19 10/29/19 Range/Units 12:48 12:48 12:48 WBC 9.6 (3.8-10.6) k/uL RBC 5.15 (4.30-5.90) m/uL Hgb 15.9 (13.0-17.5) gm/dL Hct 46.9 (39.0-53.0) % MCV 91.1 (80.0-100.0) fL MCH 30.9 (25.0-35.0) pg MCHC 33.9 (31.0-37.0) g/dL RDW 12.7 (11.5-15.5) % Plt Count 285 (150-450) k/uL Neutrophils % 48 % Lymphocytes % 39 % Monocytes % 6 % Eosinophils % 4 % Basophils % 1 % Neutrophils # 4.6 (1.3-7.7) k/uL Lymphocytes # 3.8 (1.0-4.8) k/uL Monocytes # 0.6 (0-1.0) k/uL Eosinophils # 0.3 (0-0.7) k/uL Basophils # 0.1 (0-0.2) k/uL PT 10.2 (9.0-12.0) sec INR 1.0 (<1.2) APTT 26.5 (22.0-30.0) sec D-Dimer 0.25 (<0.60) mg/L FEU Sodium 138 (137-145) mmol/L Potassium 4.4 (3.5-5.1) mmol/L Chloride 109 H (98-107) mmol/L Carbon Dioxide 23 (22-30) mmol/L Anion Gap 6 mmol/L BUN 11 (9-20) mg/dL Creatinine 0.93 (0.66-1.25) mg/dL Est GFR (CKD-EPI)AfAm >90 (>60 ml/min/1.73 sqM) Est GFR (CKD-EPI)NonAf >90 (>60 ml/min/1.73 sqM) Glucose 92 (74-99) mg/dL Calcium 10.2 (8.4-10.2) mg/dL Magnesium 2.2 (1.6-2.3) mg/dL Total Bilirubin 0.3 (0.2-1.3) mg/dL AST 27 (17-59) U/L ALT 27 (4-49) U/L Alkaline Phosphatase 98 (38-126) U/L Troponin I (0.000-0.034) ng/mL Total Protein 6.7 (6.3-8.2) g/dL Albumin 4.4 (3.5-5.0) g/dL Amylase 57 (30-110) U/L Lipase 506 H (23-300) U/L 10/29/19 Range/Units 12:48 WBC (3.8-10.6) k/uL RBC (4.30-5.90) m/uL Hgb (13.0-17.5) gm/dL Hct (39.0-53.0) % MCV (80.0-100.0) fL MCH (25.0-35.0) pg MCHC (31.0-37.0) g/dL RDW (11.5-15.5) % Plt Count (150-450) k/uL Neutrophils % % Lymphocytes % % Monocytes % % Eosinophils % % Basophils % % Neutrophils # (1.3-7.7) k/uL Lymphocytes # (1.0-4.8) k/uL Monocytes # (0-1.0) k/uL Eosinophils # (0-0.7) k/uL Basophils # (0-0.2) k/uL PT (9.0-12.0) sec INR (<1.2) APTT (22.0-30.0) sec D-Dimer (<0.60) mg/L FEU Sodium (137-145) mmol/L Potassium (3.5-5.1) mmol/L Chloride (98-107) mmol/L Carbon Dioxide (22-30) mmol/L Anion Gap mmol/L BUN (9-20) mg/dL Creatinine (0.66-1.25) mg/dL Est GFR (CKD-EPI)AfAm (>60 ml/min/1.73 sqM) Est GFR (CKD-EPI)NonAf (>60 ml/min/1.73 sqM) Glucose (74-99) mg/dL Calcium (8.4-10.2) mg/dL Magnesium (1.6-2.3) mg/dL Total Bilirubin (0.2-1.3) mg/dL AST (17-59) U/L ALT (4-49) U/L Alkaline Phosphatase (38-126) U/L Troponin I <0.012 (0.000-0.034) ng/mL Total Protein (6.3-8.2) g/dL Albumin (3.5-5.0) g/dL Amylase (30-110) U/L Lipase (23-300) U/L - Radiology Data Radiology results: image reviewed (Chest x-ray shows no acute process) Disposition Clinical Impression: Chest pain Disposition: ADMITTED IP TO THIS [facility] Is patient prescribed a controlled substance at d/c from ED?: No Referrals: None,Stated [Primary Care Provider] - 1-2 days Decision Time: 14:06
[2019-10-29 13:11] LABS: Basophils # (A) 0.1 k/uL (0-0.2); Basophils % (A) 1 %; Eosinophils # (A) 0.3 k/uL (0-0.7); Eosinophils % (A) 4 %; HCT 46.9 % (39.0-53.0); HGB 15.9 gm/dL (13.0-17.5); Lymphocytes # (A) 3.8 k/uL (1.0-4.8); Lymphocytes % (A) 39 %; MCH 30.9 pg (25.0-35.0); MCHC 33.9 g/dL (31.0-37.0); MCV 91.1 fL (80.0-100.0); Mean Platelet Volume 7.6; Monocytes # (A) 0.6 k/uL (0-1.0); Monocytes % (A) 6 %; Neutrophils # (A) 4.6 k/uL (1.3-7.7); Neutrophils % (A) 48 %; Platelet Count 285 k/uL (150-450); RBC 5.15 m/uL (4.30-5.90); RDW 12.7 % (11.5-15.5); WBC 9.6 k/uL (3.8-10.6)
--- NOTE | 2019-10-29 13:15 | XR ---
EXAMINATION TYPE: XR chest 2V DATE OF EXAM: 10/29/2019 COMPARISON: None HISTORY: 38-year-old male with chest pain TECHNIQUE: PA and lateral views FINDINGS: The cardiomediastinal silhouette, aorta, and pulmonary vasculature are within normal limits. Lungs an d pleural spaces are clear. IMPRESSION: No acute cardiopulmonary process.
[2019-10-29 13:19] LABS: ALT 27 U/L (4-49); AST 27 U/L (17-59); African American GFR (CKD) >90 (>60 ml/min/1.73 sqM); Albumin 4.4 g/dL (3.5-5.0); Alkaline Phosphatase 98 U/L (38-126); Amylase 57 U/L (30-110); Anion Gap 6 mmol/L; Blood Urea Nitrogen 11 mg/dL (9-20); Calcium 10.2 mg/dL (8.4-10.2); Carbon Dioxide 23 mmol/L (22-30); Chloride 109 mmol/L (98-107); Glucose 92 mg/dL (74-99); Magnesium 2.2 mg/dL (1.6-2.3); Non-African American GFR(CKD) >90 (>60 ml/min/1.73 sqM); Potassium 4.4 mmol/L (3.5-5.1); Sodium 138 mmol/L (137-145); Total Bilirubin 0.3 mg/dL (0.2-1.3); Total Protein 6.7 g/dL (6.3-8.2)
[2019-10-29 13:25] LABS: D-Dimer 0.25 mg/L FEU (<0.60); Partial Thromboplastin Time 26.5 sec (22.0-30.0); Prothrombin Time 10.2 sec (9.0-12.0)
[2019-10-29] MEDS ORDERED: NITROGLYCERIN SL TABS 0.4 MG TAB SUBLINGUAL PRN (14:06)
[2019-10-29] MEDS ORDERED: NICOTINE POLACRILEX 2 MG GUM BUCCAL PRN (19:34)
[2019-10-29] MEDS ORDERED: TEMAZEPAM 15 MG CAP PO PRN (20:10)
[2019-10-29] MEDS ORDERED: LORazepam 0.5 MG TAB PO PRN (20:10)
[2019-10-29 20:57] LABS: Amylase 36 U/L (30-110)
[2019-10-29] MEDS ORDERED: MELATONIN 5 MG TABLET PO SCH (21:00)
--- NOTE | 2019-10-29 22:28 | HP ---
HISTORY AND PHYSICAL DATE OF SERVICE: 10/29/2019 CHIEF COMPLAINT: Chest pain. HISTORY OF PRESENT ILLNESS: This 38-year-old gentleman with a past medical history of pancreatitis, bipolar, not being followed by a primary physician in the outpatient setting, apparently was having chest pain which was felt in the anterior part of the chest, sharp in character. It radiated to the left side and to the back also. The patient came to [facility] and felt some relief with nitroglycerin. The patient was admitted for further evaluation and treatment. Initial evaluations were negative so far. Lipase is 506. There is no history of any fever, rigor or chills. No history of headache, loss of consciousness, seizures. PAST MEDICAL HISTORY: History of pancreatitis, history of bipolar. MEDICATIONS PRIOR TO ADMISSION: None. ALLERGIES: NONE. FAMILY HISTORY: No history of heart disease or strokes in the family. SOCIAL HISTORY: History of smoking. No alcohol, but history of THC. REVIEW OF SYSTEMS: ENT: No diminished hearing. No diminished vision. CARDIOVASCULAR SYSTEM: As mentioned earlier. RESPIRATORY SYSTEM: As mentioned earlier. GI: No nausea, vomiting. : No dysuria or retention. NERVOUS SYSTEM: No numbness, weakness. ALLERGY/IMMUNOLOGY: No asthma, hayfever. MUSCULOSKELETAL: As mentioned earlier. HEMATOLOGY/ONCOLOGY: No history of anemia. ENDOCRINE: No history of diabetes, hypothyroidism. CONSTITUTIONAL: As mentioned earlier. DERMATOLOGY: Negative. RHEUMATOLOGY: Negative. PSYCHIATRY: As mentioned earlier. PHYSICAL EXAMINATION: The patient is alert and oriented x3. Pulse is 65, blood pressure 128/77, respiration 18, temperature 98.1, pulse ox 97% on room air. HEENT: Conjunctivae normal. Oral mucosa moist. NECK: No jugular venous distention. No carotid bruit. No lymph node enlargement. CARDIOVASCULAR SYSTEM: S1, S2 muffled. RESPIRATORY SYSTEM: Breath sounds diminished at the bases. No rhonchi. No crackles. ABDOMEN: Soft, non-tender. No mass palpable. LEGS: No edema. No swelling. NERVOUS SYSTEM: Higher functions as mentioned earlier. Moves all 4 limbs. No focal motor or sensory deficit. LYMPHATICS: No lymph node palpable in neck, axillae or groin. SKIN: No ulcer, rash, bleeding. JOINTS: No active deforming arthropathy. LABS: CBC within normal limits. Chloride is 109. Lipase is 150. ASSESSMENT: 1. Chest pain; rule out coronary artery disease. 2. Possible musculoskeletal pain. 3. History of pancreatitis. 4. History of cholecystectomy. 5. History of bipolar. 6. History of nicotine dependence. 7. History of tetrahydrocannabinol. RECOMMENDATIONS AND DISCUSSION: In this 38-year-old gentleman who presented with multiple medical issues, at this time I recommend to continue the current medications, continue symptomatic treatment. Otherwise, rule out myocardial infarction. Cardiology consultation. Repeat labs in the morning. Unstable angina protocol. The patient will require a stress test. Prognosis guarded because of multiple complex medical issues. Further recommendations to follow. I also recommend that the patient follow up with a primary physician closely. LEONEL / SAMANTAN: [id number] /
[2019-10-30] MEDS: NITROGLYCERIN OINT 1 INCH/GM PACKET TOPICAL SCH ×3 (06:14→06:19)
[2019-10-30 06:32] LABS: Basophils # (A) 0.1 k/uL (0-0.2); Basophils % (A) 1 %; Eosinophils # (A) 0.5 k/uL (0-0.7); Eosinophils % (A) 5 %; HCT 47.3 % (39.0-53.0); HGB 15.5 gm/dL (13.0-17.5); Lymphocytes # (A) 3.9 k/uL (1.0-4.8); Lymphocytes % (A) 44 %; MCH 30.6 pg (25.0-35.0); MCHC 32.9 g/dL (31.0-37.0); MCV 93.1 fL (80.0-100.0); Mean Platelet Volume 7.6; Monocytes # (A) 0.6 k/uL (0-1.0); Monocytes % (A) 7 %; Neutrophils # (A) 3.6 k/uL (1.3-7.7); Neutrophils % (A) 41 %; Platelet Count 252 k/uL (150-450); RBC 5.08 m/uL (4.30-5.90); RDW 12.9 % (11.5-15.5); WBC 8.9 k/uL (3.8-10.6)
[2019-10-30 07:17] LABS: ALT 28 U/L (4-49); AST 26 U/L (17-59); African American GFR (CKD) >90 (>60 ml/min/1.73 sqM); Albumin 4.2 g/dL (3.5-5.0); Alkaline Phosphatase 79 U/L (38-126); Anion Gap 5 mmol/L; Blood Urea Nitrogen 12 mg/dL (9-20); Carbon Dioxide 28 mmol/L (22-30); Chloride 109 mmol/L (98-107); Cholesterol 166 mg/dL (<200); Glucose 103 mg/dL (74-99); HDL Cholesterol 30 mg/dL (40-60); LDL Cholesterol,Calculated 102 mg/dL (0-99); Non-African American GFR(CKD) 87 (>60 ml/min/1.73 sqM); Potassium 4.7 mmol/L (3.5-5.1); Sodium 142 mmol/L (137-145); Total Bilirubin 0.5 mg/dL (0.2-1.3); Total Protein 6.5 g/dL (6.3-8.2); Triglycerides 169 mg/dL (<150)
--- NOTE | 2019-10-30 07:27 | P.HPIM ---
History of Present Illness This is a pleasant 58 years old malewith no significant past medical history, he has history of bipolar and cigarette smoker. He doesn't follow up with PCP. He presents because of chest pain. 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 Presents with 4 days history of chest pain on the left side radiating to the center associated with tenderness, pain comes with movement only about it/10, associated with some anxiety and tenderness, felt like a knife and increase by deep inspiration and coughing, usually comes only for 10 minutes after he wakes up some clear phlegm. Not really shortness of breath but as mentioned his breath is limited by pain in his left chest. He has some anxiety. No abdominal pain or nausea vomiting,no leg pain He denies trauma or fall Responsible 20 pack per day. No alcohol and uses medical marijuana He has both father and grandfather have heart disease and they got it in their 50s Vitals and labs are reviewed, his slightly bradycardic, CBC, BMP, INR, troponins are unremarkable, but his is mildly elevated 506 came back to normal at 183, d- dimer is negative at 0.25. EKG showed normal sinus rhythm. Chest x-ray, no acute process. 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 HEENT: No recent visual problems or hearing problems. Denied any sore throat. CARDIOVASCULAR: No orthopnea, PND, no palpitations, no syncope. PULMONARY: No shortness of breath, no cough, no hemoptysis. GASTROINTESTINAL: No diarrhea, no nausea, no vomiting, no abdominal pain. Normoactive bowel sounds. NEUROLOGICAL: No headaches, no weakness, no numbness. HEMATOLOGICAL: Denies any bleeding or petechiae. GENITOURINARY: Denies any burning micturition, frequency, or urgency. MUSCULOSKELETAL/RHEUMATOLOGICAL: Denies any joint pain, swelling, or any muscle pain. ENDOCRINE: Denies any polyuria or polydipsia. Past Medical History Past Medical History: No Reported History Additional Past Medical History / Comment(s): pancreatitis. History of Any Multi-Drug Resistant Organisms: None Reported Past Surgical History: Cholecystectomy Past Psychological History: Bipolar Smoking Status: Current every day smoker Past Alcohol Use History: None Reported Additional Past Alcohol Use History / Comment(s): PT STATE HE SMOKES 1/2 A PACK A DAY Past Drug Use History: Marijuana Medications and Allergies Home Medications Medication Instructions Recorded Confirmed Type No Known Home Medications 10/29/19 10/29/19 History Allergies Allergy/AdvReac Type Severity Reaction Status Date / Time No Known Allergies Allergy Verified 10/29/19 13:22 Physical Exam Vitals: Vital Signs Temp Pulse Pulse Resp BP BP Pulse Ox 10/30/19 03:00 97.5 F L 55 L 17 116/67 97 10/29/19 21:00 98.5 F 68 18 121/78 99 10/29/19 17:33 98.1 F 18 128/77 97 10/29/19 16:44 65 18 128/80 98 10/29/19 16:29 65 18 128/80 98 10/29/19 15:29 63 18 125/82 98 10/29/19 14:29 18 10/29/19 13:29 18 10/29/19 12:29 98.2 F 61 18 141/87 98 10/29/19 12:27 98.2 F 61 18 141/87 98 Intake and Output 10/29/19 10/30/19 10/30/19 22:59 06:59 14:59 Other: Voiding Method Toilet Toilet # Voids 2 1 GENERAL: The patient is alert and oriented x3, not in any acute distress. Well developed, well nourished. HEENT: Pupils are round and equally reacting to light. EOMI. No scleral icterus. No conjunctival pallor. Normocephalic, atraumatic. No pharyngeal erythema. No thyromegaly. -CARDIOVASCULAR: S1 and S2 present. No murmurs, rubs, or gallops. Left chest wall tenderness PULMONARY: Chest is clear to auscultation, no wheezing or crackles. ABDOMEN: Soft, nontender, nondistended, normoactive bowel sounds. No palpable organomegaly. MUSCULOSKELETAL: No joint swelling or deformity. EXTREMITIES: No cyanosis, clubbing, or pedal edema. NEUROLOGICAL: Gross neurological examination did not reveal any focal deficits. SKIN: No rashes. No petechiae Results CBC & Chem 7: 10/30/19 06:17 10/29/19 12:48 Labs: Abnormal Lab Results - Last 24 Hours (Table) 10/29/19 Range/Units 12:48 Chloride 109 H (98-107) mmol/L Lipase 506 H (23-300) U/L Thrombosis Risk Factor Assmnt - Choose All That Apply Any of the Below Risk Factors Present?: No Assessment and Plan Assessment: Chest pain, it looks like musculoskeletal pain, however rule out cardiac causes Nicotine dependence, Plan: this is a pleasant 38 years old male who presents with chest pain, we will do stool troponins, EKG cardiology consult, PE is ruled out with negative d-dimer and atypical symptoms with normal oxygen saturation. Labs and medication were reviewed.. Continue same treatment. Continue with symptomatic treatment. Resume home medication. Monitor lytes and vitals. DVT and GI prophylaxis. Further recommendations of the clinical course of the patient DVT prophylaxis: Subcutaneous heparin GI Prophylaxis: Pepcid PT/OT: Pending Prognosis is guarded
[2019-10-30] MEDS ORDERED: PANTOPRAZOLE 40 MG TABLET PO SCH (07:30)
[2019-10-30 07:54] VITALS: BP 114/71; PULSE 51; RESP 18; TEMP 97.9
[2019-10-30] MEDS ORDERED: ASPIRIN 325 MG TAB PO SCH (09:00)
[2019-10-30] MEDS ORDERED: IBUPROFEN 600 MG TAB PO SCH (09:00)
--- NOTE | 2019-10-30 13:49 | P.CRDCN ---
History of Present Illness Consult date: 10/30/19 Consult reason: chest pain History of present illness: The patient is a 38 show male with past medical history of current smoker, who presented to the emergency room with new onset of chest discomfort. He states it radiated through to his back shoulders, and also reports low back pain. It started earlier this week when he was at work and it has progressively gotten worse. He states it is a sharp discomfort in his worsened with movement. Cu rrently states it is a 8/10 after adjusting self in bed. He states he does have pain with deep inspiration. EKG shows sinus rhythm without ST or T-wave changes. Troponins negative 3. Chest x-ray negative for acute process PAST MEDICAL HISTORY: Current cigarette and marijuana smoker REVIEW OF SYSTEMS: No fever or chills. No cough or expectoration. No diaphoresis. Patient denies headache, dizziness, blurred vision, double vision. Patient denies any stomach discomfort. No nausea, vomiting. No hematochezia. No hematemesis. Denies any black stools or blood in his stools. Denies dysuria or hematuria. No muscle weakness or numbness. Positive for chest and back pain. PHYSICAL EXAMINATION: This is a 38-year-old male in no apparent distress at the time of my examination. HEENT: Head is atraumatic, normocephalic. Pupils are equal, round. Sclerae anicteric. Conjunctivae are clear. Mucous membranes of the mouth are moist. Neck is supple. There is no jugular venous distention. No carotid bruit is heard. CHEST EXAMINATION: Expiratory wheezes bilaterally. No chest wall tenderness is noted on palpation. HEART EXAMINATION: Heart regular rate and rhythm. S1, S2 heard. No murmurs, gallops or rub. ABDOMEN: Soft, nontender. Bowel sounds are heard. No organomegaly noted. EXTREMITIES: 2+ peripheral pulses with no evidence of peripheral edema and no calf tenderness noted. NEUROLOGIC EXAMINATION: Patient is awake, alert and oriented x3. LABORATORY DATA: WBC 8.9, hemoglobin 15.5, hematocrit 47.3, platelet 252, sodium 142, potassium 4.7, BUN 12, creatinine is 1.09, LDL 102, HDL 30, triglycerides 169, lipase 506, troponins negative 3, d-dimer 0.25 VITALS: Blood pressure 114/71, SpO2 98 on room air, respiratory rate 18, pulse 51, afebrile FINAL ASSESSMENT AND PLAN: #1 chest discomfort, likely musculoskeletal #2 current smoker PLAN: Patient's chest and back discomfort is likely musculoskeletal. We will perform echocardiogram outpatient. Patient is cleared to be discharged. Past Medical History Past Medical History: No Reported History Additional Past Medical History / Comment(s): pancreatitis. History of Any Multi-Drug Resistant Organisms: None Reported Past Surgical History: Cholecystectomy Past Psychological History: Bipolar Smoking Status: Current every day smoker Past Alcohol Use History: None Reported Additional Past Alcohol Use History / Comment(s): PT STATE HE SMOKES 1/2 A PACK A DAY Past Drug Use History: Marijuana Medications and Allergies Home Medications Medication Instructions Recorded Confirmed Type Ibuprofen [Motrin] 600 mg PO TID PRN 2 Days #6 tab 10/30/19 Rx Nicotine Polacrilex [Nicorette] 2 mg BUCCAL Q4HR PRN #7 gum 10/30/19 Rx Allergies Allergy/AdvReac Type Severity Reaction Status Date / Time No Known Allergies Allergy Verified 10/29/19 13:22 Physical Exam Vitals: Vital Signs Temp Pulse Pulse Resp BP BP BP 10/30/19 08:52 51 L 18 10/30/19 07:51 97.9 F 51 L 18 114/71 108/68 10/30/19 03:00 97.5 F L 55 L 17 116/67 10/29/19 21:00 98.5 F 68 18 121/78 10/29/19 17:33 98.1 F 18 128/77 10/29/19 16:44 65 18 128/80 10/29/19 16:29 65 18 128/80 10/29/19 15:29 63 18 125/82 10/29/19 14:29 18 10/29/19 13:29 18 Pulse Ox 10/30/19 08:52 10/30/19 07:51 98 10/30/19 03:00 97 10/29/19 21:00 99 10/29/19 17:33 97 10/29/19 16:44 98 10/29/19 16:29 98 10/29/19 15:29 98 10/29/19 14:29 10/29/19 13:29 Intake and Output 10/29/19 10/30/19 10/30/19 22:59 06:59 14:59 Intake Total 480 Balance 480 Intake: Oral 480 Other: Voiding Method Toilet Toilet Toilet # Voids 2 1 Results 10/30/19 06:17 10/30/19 06:17 Cardiac Enzymes 10/29/19 10/29/19 10/29/19 Range/Units 12:48 15:31 19:16 AST (17-59) U/L Troponin I <0.012 <0.012 <0.012 (0.000-0.034) ng/mL 10/30/19 Range/Units 06:17 AST 26 (17-59) U/L Troponin I (0.000-0.034) ng/mL Coagulation 10/29/19 Range/Units 12:48 PT 10.2 (9.0-12.0) sec APTT 26.5 (22.0-30.0) sec Lipids 10/30/19 Range/Units 06:17 Triglycerides 169 H (<150) mg/dL Cholesterol 166 (<200) mg/dL HDL Cholesterol 30 L (40-60) mg/dL CBC 10/30/19 Range/Units 06:17 WBC 8.9 (3.8-10.6) k/uL RBC 5.08 (4.30-5.90) m/uL Hgb 15.5 (13.0-17.5) gm/dL Hct 47.3 (39.0-53.0) % Plt Count 252 (150-450) k/uL Comprehensive Metabolic Panel 10/30/19 Range/Units 06:17 Sodium 142 (137-145) mmol/L Potassium 4.7 (3.5-5.1) mmol/L Chloride 109 H (98-107) mmol/L Carbon Dioxide 28 (22-30) mmol/L BUN 12 (9-20) mg/dL Creatinine 1.09 (0.66-1.25) mg/dL Glucose 103 H (74-99) mg/dL Calcium 10.0 (8.4-10.2) mg/dL AST 26 (17-59) U/L ALT 28 (4-49) U/L Alkaline Phosphatase 79 (38-126) U/L Total Protein 6.5 (6.3-8.2) g/dL Albumin 4.2 (3.5-5.0) g/dL Current Medications Generic Name Dose Route Start Last Admin Trade Name Freq PRN Reason Stop Dose Admin Aspirin 325 mg 10/30/19 09:00 10/30/19 07:49 Aspirin PO 325 mg DAILY ALISON Administration Ibuprofen 600 mg 10/30/19 09:00 10/30/19 07:49 Motrin PO 600 mg TID ALISON Administration Lorazepam 0.5 mg 10/29/19 20:10 Ativan PO Q8HR PRN Anxiety Melatonin 5 mg 10/29/19 21:00 10/29/19 21:46 Melatonin PO 5 mg HS ALISON Administration Nicotine Polacrilex 2 mg 10/29/19 19:34 10/29/19 22:27 Nicorette Gum BUCCAL 2 mg Q4HR PRN Administration Nicotine Cravings Nitroglycerin 0.4 mg 10/29/19 14:06 Nitrostat SUBLINGUAL Q5M PRN Chest Pain Nitroglycerin 1 inch 10/29/19 18:00 10/30/19 06:19 Nitro-Bid Oint TOPICAL Not Given Q6HR ALISON Pantoprazole Sodium 40 mg 10/30/19 07:30 10/30/19 06:30 Protonix PO 40 mg [id number] ALISON Administration Sodium Chloride 10 ml 10/29/19 21:00 10/30/19 06:17 Saline Flush IV 10 ml BID ALISON Administration Temazepam 15 mg 10/29/19 20:10 Restoril PO HS PRN Insomnia Intake and Output 10/29/19 10/30/19 10/30/19 22:59 06:59 14:59 Intake Total 480 Balance 480 Intake: Oral 480 Other: Voiding Method Toilet Toilet Toilet # Voids 2 1 10/30/19 06:17 10/30/19 06:17
== END 2019-10-30 15:10 | disposition home or self-care (01) ==
LOC: EC 12:26 → 3NCARDOBS 14:06
PROVIDERS: ADMIT Hospitalist; ATTEND Hospitalist
DX: R07.89 Other chest pain (principal); R05 Cough; R06.02 Shortness of breath; F17.210 Nicotine dependence, cigarettes, uncomplicated; Z87.19 Personal history of other diseases of the digestive system; Z90.49 Acquired absence of other specified parts of digestive tract; F31.9 Bipolar disorder, unspecified; Z82.49 Family history of ischemic heart disease and other diseases of the circulatory system; Z03.818 Encounter for observation for suspected exposure to other biological agents ruled out
CPT/HCPCS: 93005 ×2; 99285; 36415; 85379; 80061; 80053 ×2; 82150; 83690; 83735; 84484; 85025 ×2; 85610; 85730; 71046; G0378 ×2; U0003

== ENCOUNTER → 2019-11-29 | Outpatient (CLI) | payer SELFPAY ==
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
== END | disposition home or self-care (01) ==
LOC: RADXRMAIN 09:08
PROVIDERS: ATTEND Internal Medicine
DX: Z18.10 Retained metal fragments, unspecified (principal)
CPT/HCPCS: 70140

== ENCOUNTER → 2019-12-21 | Outpatient (CLI) | payer OTHER ==
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
== END | disposition home or self-care (01) ==
LOC: RADCTMAIN 14:42
PROVIDERS: ATTEND Orthopaedic Surgery Sports Medicine
DX: M50.10 Cervical disc disorder with radiculopathy, unspecified cervical region (principal); M25.512 Pain in left shoulder
CPT/HCPCS: 72125